=== PATIENT | female | born 1950 | race African-American/Black ===

== ENCOUNTER 2017-12-12 14:17 | Emergency (ER) | payer MEDICARE ==
[~2017-12-12] VITALS: Ht 170.2 cm; Wt 84.1 kg
[2017-12-12] MEDS ORDERED: ASPI-556 PO (14:37)
[2017-12-12] MEDS ORDERED: AMLO-352 PO (14:37)
[2017-12-12] MEDS ORDERED: ATOR40TA28 PO (14:37)
[2017-12-12] MEDS ORDERED: DIAZEPAM 5 MG TABLET PO ONE (15:45)
[2017-12-12] MEDS ORDERED: IBUPROFEN 800 MG TABLET PO ONE (15:45)
[2017-12-12] MEDS ORDERED: HYDROCODONE/ACETAMINOPHEN 5-325 MG TABLET PO ONE (15:45)
[2017-12-12 16:06] VITALS: BP 134/78
== END 2017-12-12 16:13 | disposition home or self-care (01) ==
LOC: EMS 14:20
DX: S39.012A Strain of muscle, fascia and tendon of lower back, initial encounter (principal); I10 Essential (primary) hypertension; Z79.899 Other long term (current) drug therapy; Z79.82 Long term (current) use of aspirin; W17.89XA Other fall from one level to another, initial encounter; Y93.89 Activity, other specified; Y92.89 Other specified places as the place of occurrence of the external cause; Y99.8 Other external cause status
CPT/HCPCS: 99284